=== PATIENT | female | born 1970 | race Two or more races ===

== ENCOUNTER 2024-06-09 15:43 | Inpatient (IN) | payer MEDICAID ==
[~2024-06-09] VITALS: Ht 165.1 cm; Wt 80.1 kg
[2024-06-09] MEDS ORDERED: SODIUM CHLORIDE 0.9% 1,000 ML IV ONE (16:00)
[2024-06-09 16:53] LABS: Basophils # (auto) 0.1 10 ^3/uL (0-0.2); Basophils % (auto) 1.2 % (0.0-2.0); Eosinophils # (auto) 0.2 10 ^3/uL (0-0.8); Eosinophils % (auto) 3.4 % (0.0-7.0); Hematocrit 37.3 % (36.0-46.0); Hemoglobin 12.4 g/dL (12.2-16.2); Mean Corpuscular Hemoglobin 30.1 pg (28.0-32.0); Mean Corpuscular Hgb Conc. 33.3 g/dL (32.0-36.0); Mean Corpuscular Volume 90.4 fL (80.0-100.0); Monocytes # (auto) 0.4 10 ^3/uL (0-1.3); Monocytes % (auto) 5.6 % (0.0-12.0); Neutrophils # (auto) 3.1 10 ^3/uL (1.6-8.6); Neutrophils % (auto) 45.8 % (37.0-80.0); Nucleated Red Blood Cells % 0.2 %; Platelet Count (auto) 239 10^3/uL (140-450); Red Blood Cells 4.13 10^6/uL (4.0-5.20); White Blood Cell 6.9 10^3/uL (4.4-10.8)
[2024-06-09 17:06] LABS: Alanine Aminotransferase 14 U/L (7-40); Alkaline Phosphatase 90 U/L (46-116); Anion Gap 7 (5-15); BUN/Creatinine Ratio 15.2 (10.0-20.0); Blood Urea Nitrogen 15 mg/dL (9-23); Calcium 9.1 mg/dL (8.7-10.4); Carbon Dioxide 25 mmol/L (20-31); Lipase 48 U/L (12-53); Potassium 4.2 mmol/L (3.5-5.1); Sodium 141 mmol/L (136-145); Total Protein 6.5 g/dL (5.7-8.2)
[2024-06-09] MEDS: SODIUM CHLORIDE 0.9% 1,000 ML IV ONE ×2 (17:10→20:49)
[2024-06-09 17:40] LABS: Aspartate Aminotransferase 13 U/L (13-40); Bilirubin, Total 0.2 mg/dL (0.2-1.0); Chloride 109 mmol/L (98-107); Glucose 106 mg/dL (74-106)
[2024-06-09] MEDS: HYDROcodone-ACET 10/325MG TAB PO ONE (17:49)
[2024-06-09] MEDS: IOHEXOL 300 MG/ML 100ML BOTTLE IJ ONE (18:10)
--- NOTE | 2024-06-09 19:01 | DVH ---
Exam: CT CT AB PEL WITH IV CON ONLY History: GI bleed Comparison Study: None TECHNIQUE: A digital featheredger and reducer machine image was obtained. During the uneventful, intravenous administration of c ontrast material, multislice data acquisition was obtained through the abdomen and pelvis. The data s et was subsequently reconstructed into axial images. Images reviewed on a wrist examination is an exa mination of axial and multiplanar reformations using a variety of window levels and settings. RADIATION DOSE: DLP 772.03 mGy.cm; CTDI vol 15.38 mGy. Findings: Lungs: The lung bases are clear. Heart: The visualized heart is unremarkable. No cardiomegaly or pericardial effusion. Liver: Unremarkable. Gallbladder: Unremarkable. Spleen: Unremarkable Pancreas: Unremarkable Adrenals: Unremarkable Kidneys: Unremarkable GI tract: Focal region of contrast extravasation noted in the mid transverse colon (axial image 38, c oronal image 26, sagittal image 71). Diffuse wall thickening of the jejunum. : Status post hysterectomy. Vasculature: Unremarkable Lymphadenopathy: Absent Peritoneum: No ascites Musculoskeletal: Mild to moderate multilevel degenerative changes of the thoracolumbar spine. Soft tissues: Unremarkable Impression: 1. Focal region of contrast extravasation in the mid transverse colon suggestive of gastrointestinal hemorrhage. 2. Diffuse jejunal wall thickening. Correlate for enteritis. Critical Result: Active Bleeding Findings discussed with SPENCER MACIAS at 06/09/2024 06:58 PM, and acknowledged receipt and understandin g of the findings.
[2024-06-09] MEDS: PIPERACILLIN-TAZOB 3.375GM 100 ML IV ONE (20:49)
--- NOTE | 2024-06-09 20:56 | ED.PDOC ---
GI ASSESSMENT HPI Comments This patient is a 54-year-old female who arrives to the ED today via EMS due to complaints of rectal bleeding and lower abdominal pain that began this morning and has continued. Patient states she had multiple movements were she had significant blood loss. Patient states multiple cups. Patient denies any history of hemorrhoids or intra-abdominal concerns. Patient denies any fever nausea or vomiting. Patient states she has a little bit dizzy. Patient was hypertensive on arrival. Chief Complaint: GI Bleed Time Seen by MD: 15:48 Primary Care Provider: UNKNOWN Reviewed Notes: Nurses Notes, Materials Associate Notes Allergies: Coded Allergies: NO KNOWN ALLERGIES (Unverified , 06/09/24) Information Source: Patient, Emergency Med Personnel Mode of Arrival: EMS Timing: Hours Duration: Since onset Prehospital treatment: None Quality: Cramping Stool: Blood Streaked, Other (Bloody stool with blood clots) Severity: Moderate Recent: None Recent Hx of: None Pain Location: Diffuse, Epigastric, Periumbilical Associated sign and symptoms: Diarrhea, Blood in Stool Past Medical History PAST MEDICAL HISTORY: Denies Surgical History: Denies all surgeries BRAND MARKETING COORDINATOR History: No Pertinent BRAND MARKETING COORDINATOR History Family History Family History: Reviewed,noncontributory to illness, No family hx of Cancer, No family hx of DM, No family hx of Heart jessica, No family hx of HTN, No family hx ofKidney jessica, No family hx of Liver jessica, No family hx of Lung jessica, No family hx of Stroke Social History Smoker: Non-Smoker Alcohol: Denies ETOH Use Drugs: Denies Drug Use Lives In: Home Constitutional: denies: chills, diaphoresis, fatigue, fever, malaise, sweats, weakness, others EENTM: denies: blurred vision, double vision, ear bleeding, ear discharge, ear drainage, ear pain, ear ringing, eye pain, eye redness, hearing loss, mouth pain, mouth swelling, nasal discharge, nose bleeding, nose congestion, nose pain, photophobia, tearing, throat pain, throat swelling, voice changes, others Respiratory: denies: cough, hemoptysis, orthopnea, SOB at rest, shortness of breath, SOB with excertion, stridor, wheezing, others Cardiovascular: denies: chest pain, dizzy spells, diaphoresis, Dyspnea on exertion, edema, irregular heart beat, left arm pain, lightheadedness, palpitations, PND, syncope, others Gastrointestinal: reports: rectal bleeding; denies: abdomen distended, abdominal pain, blood streaked bowels, constipated, diarrhea, dysphagia, difficu lty swallowing, hematemesis, melena, nausea, poor appetite, poor fluid intake, rectal pain, vomiting, others Genitourinary: denies: abnormal vagina bleeding, burning, dyspareunia, dysuria, flank pain, frequency, hematuria, incontinence, pain, , vagina discharge, urgency, others Neurological: reports: dizziness; denies: fainting, headache, left sided numbness, left sided weakness, numbness, paresthesia, pre-existing deficit, right sided numbness, right sided weakness, seizure, speech problems, tingling, tremors, weakness, others Musculoskeletal: denies: back pain, gout, joint pain, joint swelling, muscle pain, muscle stiffness, neck pain, others Integumetry: denies: bruises, change in color, change in hair/nails, dryness, laceration, lesions, lumps, rash, wounds, others Allergic/Immunocompromised: denies: Difficulty Healing, Frequent Infections, Hives, Itching, others Hematologic/Lymphatic: denies: anemia, blood clots, easy bleeding, easy bruising, swollen glands, others Endocrine: denies: excessive hunger, excessive sweating, excessive thirst, excessive urination, flushing, intolerance to cold, intolerance to heat, unexplained weight gain, unexplained weight loss, others Psychiatric: denies: anxiety, bipolar disorder, depression, hopeless, panic disorder, schizophrenia, sleepless, suicidal, others Physical Exam General Appearance: Moderate Distress (Patient is in moderate distress due to anxiety more than definitive pain concerns.), Normal HEENT: Normal ENT Inspection, Pharynx Normal, TMs Normal Neck: Full Range of Motion, Non-Tender, Normal, Normal Inspection Respiratory: Chest Non-Tender, Lungs Clear, No Accessory Muscle Use, No Respiratory Distress, Normal Breath Sounds Cardiovascular: No Edema, No JVD, No Murmur, No Gallop, Normal Peripheral Pulses, Regular Rate/Rhythm Breast Exam: Deferred Gastrointestinal: No Pulsatile Mass, Normal Bowel Sounds, Soft, Other (Diffuse periumbilical and epigastric tenderness to palpation. No pulsatile masses. Abdomen was reasonably soft.) Genitalia: Deferred Pelvic: Deferred Rectal: Deferred Extremities: No calf tenderness, Normal capillary refill, Normal inspection, Normal range of motion, Non-tender, No pedal edema Neurologic: Alert, No Motor Deficits, Normal Affect, No Sensory Deficits Cerebellar Function: Normal Reflexes: Normal Skin: Dry, Normal Color, Warm Lymphatic: No Adenopathy Was a procedure done? Was a procedure done?: No GI differential Dx Differential Diagnosis: Bowel Obstruction, Cholangitis, Constipation, Diverticular disease, Gastritis/PUD, Gastroenteritis, GI hemorrhage, Inflammatory BD, Pancreatitis, Kidney Stone X-Ray, Labs, Meds, VS Vital Signs Date Time Temp Pulse Resp B/P (MAP) Pulse Ox O2 Delivery O2 Flow Rate FiO2 06/09/24 20:10 88 11 121/73 (89) 98 06/09/24 17:18 98.1 91 18 118/50 (72) 97 98.1 06/09/24 17:18 91 18 97 Room Air 06/09/24 16:03 98.7 93 17 175/83 (113) 97 Lab Test 06/09/24 16:10 Range/Units White Blood Count 6.9 4.4-10.8 10^3/uL Red Blood Count 4.13 4.0-5.20 10^6/uL Hemoglobin 12.4 12.2-16.2 g/dL Hematocrit 37.3 36.0-46.0 % Mean Corpuscular Volume 90.4 80.0-100.0 fL Mean Corpuscular Hemoglobin 30.1 28.0-32.0 pg Mean Corpuscular Hemoglobin Concent 33.3 32.0-36.0 g/dL Red Cell Distribution Width 13.0 11.8-14.3 % Platelet Count 239 140-450 10^3/uL Mean Platelet Volume 8.4 6.9-10.8 fL Neutrophils (%) (Auto) 45.8 37.0-80.0 % Lymphocytes (%) (Auto) 44.0 10.0-50.0 % Monocytes (%) (Auto) 5.6 0.0-12.0 % Eosinophils (%) (Auto) 3.4 0.0-7.0 % Basophils (%) (Auto) 1.2 0.0-2.0 % Neutrophils # (Auto) 3.1 1.6-8.6 10 ^3/uL Lymphocytes # (Auto) 3.0 0.4-5.4 10 ^3/uL Monocytes # (Auto) 0.4 0-1.3 10 ^3/uL Eosinophils # (Auto) 0.2 0-0.8 10 ^3/uL Basophils # (Auto) 0.1 0-0.2 10 ^3/uL Nucleated Red Blood Cells 0.2 % Sodium Level 141 136-145 mmol/L Potassium Level 4.2 3.5-5.1 mmol/L Chloride Level 109 H 98-107 mmol/L Carbon Dioxide Level 25 20-31 mmol/L Anion Gap 7 5-15 Blood Urea Nitrogen 15 9-23 mg/dL Creatinine 0.99 0.550-1.02 mg/dL Glomerular Filtration Rate Calc 67 >90 mL/min BUN/Creatinine Ratio 15.2 10.0-20.0 Serum Glucose 106 74-106 mg/dL Calcium Level 9.1 8.7-10.4 mg/dL Total Bilirubin 0.2 0.2-1.0 mg/dL Aspartate Amino Transferase (AST) 13 13-40 U/L Alanine Aminotransferase (ALT) 14 7-40 U/L Alkaline Phosphatase 90 46-116 U/L Total Protein 6.5 5.7-8.2 g/dL Albumin 4.0 3.2-4.8 g/dL Lipase 48 12-53 U/L Current Medications Medications (Trade) Dose Ordered Sig/Roxanna Route Start Time Stop Time Status Last Admin Sodium Chloride 1,000 ml @ 1,000 mls/hr Q1H ONCE IV 06/09/24 17:15 06/09/24 18:14 DC 06/09/24 17:10 Acetaminophen/ Hydrocodone Bitart ([place] 10/325MG Tab) 1 tab ONCE ONCE PO 06/09/24 17:30 06/09/24 17:31 DC 06/09/24 17:49 X-Ray, Labs, Meds, VS Comment All studies performed the ED were evaluated by me personally. Urinalysis was pending at time of this note. Serum laboratories were unremarkable for any significant anemic concerns or infective concerns. Unfortunately, CT of abdomen and pelvis with contrast confirmed a transverse colon bleed. Dr. Cain was ini tially contacted and stated that we needed to discuss the case with Dr. German to confirm surgical support. We do not have Interventional radiation over the weekend so therefore, Dr. Cain was concerned. Discussed the case with Dr. German. He agreed to accept the patient for surgical intervention tomorrow morning. He advised keeping the patient NPO as well as IV antibiotics and fluids. This patient's insurance required a consultation with provider Ev Frank. She stated that Dr. Cain needs stated come physically see the patient and write a note prior to confirming admission. Dr. Cain has been notified. Time of 1ST Reevaluation: 20:54 Reevaluation 1ST: Improved Consultation: PCP, Surgery Patient Education/Counseling: Diagnosis, Treatment Family Education/Counseling: Diagnosis, Treatment Departure 1 Departure Time of Disposition: 20:55 Impression: Primary Impression: GI bleed Disposition: ADMITTED INPATIENT Condition: Stable Discharged With: Self Critical Care Note Critical Care Time?: No Stability Stability form required: No Heart Score Heart Score: Heart Score Response (Comments) Value History N/A 0 EKG N/A 0 Age N/A 0 Risk Factors N/A 0 Troponin N/A 0 Total 0 SPENCER MACIAS PAC Jun 09, 2024 20:56
[2024-06-09 21:41] LABS: Basophils # (auto) 0.1 10 ^3/uL (0-0.2); Basophils % (auto) 0.9 % (0.0-2.0); Eosinophils # (auto) 0.2 10 ^3/uL (0-0.8); Eosinophils % (auto) 2.8 % (0.0-7.0); Hematocrit 28.9 % (36.0-46.0); Hemoglobin 9.5 g/dL (12.2-16.2); Lymphocytes # (auto) 3.1 10 ^3/uL (0.4-5.4); Lymphocytes % (auto) 39.9 % (10.0-50.0); Mean Corpuscular Hemoglobin 30.5 pg (28.0-32.0); Mean Corpuscular Hgb Conc. 33.1 g/dL (32.0-36.0); Mean Corpuscular Volume 92.3 fL (80.0-100.0); Monocytes # (auto) 0.4 10 ^3/uL (0-1.3); Monocytes % (auto) 5.3 % (0.0-12.0); Neutrophils % (auto) 51.1 % (37.0-80.0); Nucleated Red Blood Cells % 0.3 %; Platelet Count (auto) 201 10^3/uL (140-450); Red Blood Cells 3.13 10^6/uL (4.0-5.20); Red Cell Distribution Width 13.1 % (11.8-14.3); White Blood Cell 7.8 10^3/uL (4.4-10.8)
--- NOTE | 2024-06-09 21:45 | PRN ---
[facility] 06/09/24 2145: Misceleneous Note Note Note Called by ED Provider Xavier PERDOMO for medical management, patient with chief complaint of bleeding x [address] abdomen/pelvis w iv contrast resulted: 1. Focal region of contrast extravasation in the mid transverse colon suggestive of gastrointestinal hemorrhage. 2. Diffuse jejunal wall thickening. Correlate for enteritis. Critical Result: Active Bleeding Recommendation to please call GI for patient assessment for active gi bleeding per radiology report. Once patient has been seen by GI or general surgeon please call for medical management. H&H every 6 hours ordered. Thank you. Discussed all above with supervising MD Dr. Rowland. SHANA ROWLAND MD 06/11/24 1412: Misceleneous Note Note Note Patient was seen and evaluated by me. I agree with the assessment and plan as outlined by my nurse practitioner. CHANNING FOSTER [employer] [employer] MARKER Jun 09, 2024 21:45 SHANA ROWLAND MD Jun 11, 2024 14:12
[2024-06-09] MEDS: HYDROmorphone HCL 2 MG/ML VL/or syr IV ONE (22:01)
[2024-06-09] MEDS: ONDANSETRON HCL 4 MG/2 ML VIAL IV ONE (22:03)
[2024-06-09 22:45] LABS: Urine Bacteria None Seen /hpf (None Seen)
[2024-06-09 23:05] LABS: Urine Blood Negative /uL (Negative); Urine Clarity Clear (Clear); Urine Color Light-Yellow (Yellow); Urine Protein, UAD TRACE (Negative); Urine Squamous Epithelial Cell FEW /hpf (<5); Urine Urobilinogen Normal (Negative); Urine WBC 1 /hpf (0 - 5)
[2024-06-09 23:08] LABS: Urine Specific Gravity > 1.050 (1.001-1.035)
[2024-06-10 00:38] LABS: Hematocrit 31.4 % (36.0-46.0); Hemoglobin 10.3 g/dL (12.2-16.2)
[2024-06-10] MEDS: LORazepam 2MG/ML-1ML VIAL IV ONE (01:36)
[2024-06-10] MEDS: HYDROmorphone HCL 2 MG/ML VL/or syr IV ONE (01:38)
[2024-06-10] MEDS: SODIUM CHLORIDE 0.9% 1,000 ML IV SCH (02:00)
[2024-06-10 06:12] LABS: Hematocrit 29.2 % (36.0-46.0); Hemoglobin 9.7 g/dL (12.2-16.2)
[2024-06-10 08:00] VITALS: PULSE 69; RESP 17; O2SAT 94
[2024-06-10] MEDS ORDERED: ACETAMINOPHEN 325 MG TAB PO PRN (09:00)
[2024-06-10] MEDS ORDERED: SODIUM CHLORIDE 0.9% 1,000 ML IV SCH (09:00)
[2024-06-10] MEDS ORDERED: ONDANSETRON HCL 4 MG/2 ML VIAL IV PRN (09:00)
[2024-06-10] MEDS ORDERED: MORPHINE SULFATE INJ 2 MG/ml SYRG IV PRN (09:00)
[2024-06-10] MEDS ORDERED: MORPHINE SULFATE 4 MG/ML SYR/VIAL IV PRN (09:00)
[2024-06-10] MEDS ORDERED: HYDROcodone-ACET 5/325MG TAB PO PRN (09:00)
[2024-06-10] MEDS ORDERED: NITROGLYCERIN 0.4 MG SL TAB SL PRN (09:00)
[2024-06-10] MEDS ORDERED: PANTOPRAZOLE 40 MG/10 ML VIAL INJ IV SCH (10:00)
--- NOTE | 2024-06-10 10:28 | DVHHP2 ---
History of Present Illness Reason for Visit: Dizziness and blood in stool History of Present Illness Daya Hendrickson is a 54-year-old female with past medical history of hypertension, diabetes, heart valve, ovarian cancer, and abdominal tumor who presents to the ED today with dizziness and blood in her stool. Patient reports that she was in the shower came out had some coffee and went to the bathroom noticed that when she had a bowel movement there is blood in her stool. She reports having blood in her stool x7 when she was home at home and 4 times in the ED. she complains of 7/10 pain pressure-like and intermittent. She denies nausea, vomiting, headache, chest pain, shortness of breath, and ligh theadedness. Patient does report that she just recently establish a PCP and was supposed to do some tests but did not continue. She reports that she has a leaking heart valve was advised about 2 months ago when she was at [facility]. Patient reports that she has not followed up with a special warfare boat operator for that. Patient admits that she smokes marijuana also drinks occasionally and smokes less than half a pack of cigarettes per day. Cardiovascular: HTN, Other (Heart valve) Endocrine: Diabetes Past Medical History Ovarian cancer and abdominal tumor Past Surgical History: Other Past Surgical History Heart valve Family History: CVA, DM, Hyperlipidemia, Other Family History Patient reports both mom and dad side have diabetes, hyperlipidemia, CVA Smoke: <1 pack per day ALCOHOL: occassional Drugs: Marijuana Lives: with Family Domestic Violence: Neg Review of Systems Constitutional: Yes: Other (Dizziness); No: Fever, Chills, Sweats, Weakness, Malaise Eyes: No: Pain, Vision change, Conjunctivae inflammation, Eyelid inflammation, Other, Redness ENT: No: Ear pain, Ear discharge, Nose pain, Nose discharge, Nose congestion, Mouth pain, Mouth swelling, Throat pain, Throat swelling, Other Respiratory: No: Cough, Dry, Shortness of breath, SOB with excertion, Wheezing, Hemoptysis, Pleuritic Pain, Sputum, Wheezing, Other Cardiovascular: No: Chest Pain, Palpitations, Orthopnea, Paroxysmal Noc. Dyspnea, Edema, Lt Headedness, Other Gastrointestinal: Abdominal Pain, Hematochezia; No: Nausea, Vomiting, Diarrhea, Constipation, Melena, Other Genitourinary: No Dysuria, No Frequency, No Incontinence, No Hematuria, No Retention, No Other Musculoskeletal: No: other, neck pain, shoulder pain, arm pain, back pain, hand pain, leg pain, foot pain Skin: No: Rash, Lesions, Jaundice, Bruising, Other Neurological: No: Weakness, Numbness, Incoordination, Change in speech, Confusion, Seizures, Other Allergies: Coded Allergies: NO KNOWN ALLERGIES (Unverified , 06/09/24) Medications Current Medications Medications Dose Ordered Sig/Roxanna Route Start Time Stop Time Status Last Admin Dose Admin Acetaminophen/ Hydrocodone Bitart 1 tab Q4HP PRN PO 06/10/24 09:00 UNV Acetaminophen 650 mg Q6HP PRN PO 06/10/24 09:00 UNV Nitroglycerin 0.4 mg Q5MINP PRN SL 06/10/24 09:00 UNV Morphine Sulfate 2 mg Q30M PRN IV 06/10/24 09:00 UNV Pantoprazole Sodium 40 mg DAILY IV 06/10/24 10:00 UNV Sodium Chloride 1,000 ml @ 100 mls/hr Q10H IV 06/10/24 09:00 UNV Piperacillin Sod/ Tazobactam Sod 100 ml @ 25 mls/hr Q6HR IV 06/10/24 12:00 UNV Morphine Sulfate 4 mg Q4HPRN PRN IV 06/10/24 09:00 UNV Ondansetron HCl 4 mg Q4HPRN PRN IV 06/10/24 09:00 UNV Sodium Chloride 1,000 ml @ 75 mls/hr [id number] IV 06/10/24 09:45 UNV Piperacillin Sod/ Tazobactam Sod 100 ml @ 25 mls/hr Q8HR IV 06/10/24 14:00 UNV Acetaminophen/ Hydrocodone Bitart 1 tab Q4HP PRN PO 06/10/24 09:45 UNV Ondansetron HCl 4 mg Q4HP PRN IV 06/10/24 09:45 UNV Acetaminophen 650 mg Q6HP PRN PO 06/10/24 09:45 UNV Morphine Sulfate 2 mg Q4HPRN PRN IV 06/10/24 09:45 UNV Exam Vital Signs Vital Signs Date Time Temp Pulse Resp B/P (MAP) Pulse Ox O2 Delivery O2 Flow Rate FiO2 06/10/24 06:34 74 10 140/71 (94) 99 06/09/24 22:19 98.4 98.4 06/09/24 17:18 Room Air General Appearance: Alert, Oriented X3, Cooperative, No acute distress HEENT: Atraumatic, PERRLA, EOMI, Mucous membr. moist/pink Respiratory: Clear to auscultation, Normal air movement Cardiovascular: Regular rate, Normal S1, Normal S2, No murmurs Abdominal: Soft Extremities: No clubbing, No cyanosis, No edema, Normal pulses, No tenderness/ swelling Skin: No rashes, No breakdown, No significant lesion Neuro: Normal gait, Normal speech, Strength at 5/5 X4 ext, Normal tone, Sensation intact Psych/Mental Status: Mental status NL, Mood NL Labs/Xrays Labs Test 06/10/24 05:40 06/09/24 21:47 06/09/24 20:50 06/09/24 16:10 Range/Units Hemoglobin 9.7 L 12.2-16.2 g/dL Hematocrit 29.2 L 36.0-46.0 % Urine Color Light-yellow Yellow Urine Clarity Clear Clear Urine pH 6.0 5.0-9.0 Urine Specific [place] > 1.050 H 1.001-1.035 Urine Protein Trace H Negative Urine Ketones Negative Negative Urine Blood Negative Negative /uL Urine Nitrite Negative Negative Urine Bilirubin Negative Negative Urine Urobilinogen Normal Negative mg/dL Urine Leukocyte Esterase Negative Negative /uL Urine RBC 1 0 - 4 /hpf Urine WBC 1 0 - 5 /hpf Urine Squamous Epithelial Cells Few <5 /hpf Urine Bacteria None seen None Seen /hpf Urine Glucose Normal Normal mg/dL White Blood Count 7.8 4.4-10.8 10^3/uL Red Blood Count 3.13 L 4.0-5.20 10^6/uL Mean Corpuscular Volume 92.3 80.0-100.0 fL Mean Corpuscular Hemoglobin 30.5 28.0-32.0 pg Mean Corpuscular Hemoglobin Concent 33.1 32.0-36.0 g/dL Red Cell Distribution Width 13.1 11.8-14.3 % Platelet Count 201 140-450 10^3/uL Mean Platelet Volume 8.4 6.9-10.8 fL Neutrophils (%) (Auto) 51.1 37.0-80.0 % Lymphocytes (%) (Auto) 39.9 10.0-50.0 % Monocytes (%) (Auto) 5.3 0.0-12.0 % Eosinophils (%) (Auto) 2.8 0.0-7.0 % Basophils (%) (Auto) 0.9 0.0-2.0 % Neutrophils # (Auto) 4.0 1.6-8.6 10 ^3/uL Lymphocytes # (Auto) 3.1 0.4-5.4 10 ^3/uL Monocytes # (Auto) 0.4 0-1.3 10 ^3/uL Eosinophils # (Auto) 0.2 0-0.8 10 ^3/uL Basophils # (Auto) 0.1 0-0.2 10 ^3/uL Nucleated Red Blood Cells 0.3 % Sodium Level 141 136-145 mmol/L Potassium Level 4.2 3.5-5.1 mmol/L Chloride Level 109 H 98-107 mmol/L Carbon Dioxide Level 25 20-31 mmol/L Anion Gap 7 5-15 Blood Urea Nitrogen 15 9-23 mg/dL Creatinine 0.99 0.550-1.02 mg/dL Glomerular Filtration Rate Calc 67 >90 mL/min BUN/Creatinine Ratio 15.2 10.0-20.0 Serum Glucose 106 74-106 mg/dL Calcium Level 9.1 8.7-10.4 mg/dL Total Bilirubin 0.2 0.2-1.0 mg/dL Aspartate Amino Transferase (AST) 13 13-40 U/L Alanine Aminotransferase (ALT) 14 7-40 U/L Alkaline Phosphatase 90 46-116 U/L Total Protein 6.5 5.7-8.2 g/dL Albumin 4.0 3.2-4.8 g/dL Lipase 48 12-53 U/L Exam: CT CT AB PEL WITH IV CON ONLY History: GI bleed Comparison Study: None TECHNIQUE: A digital media intern image was obtained. During the uneventful, intravenous administration of contrast material, multislice data acquisition was obtained through the abdomen and pelvis. The data set was subsequently reconstructed into axial images. Images reviewed on a wrist examination is an examination of axial and multiplanar reformations using a variety of window levels and settings. RADIATION DOSE: DLP 772.03 mGy.cm; CTDI vol 15.38 mGy. Findings: Lungs: The lung bases are clear. Heart: The visualized heart is unremarkable. No cardiomegaly or pericardial effusion. Liver: Unremarkable. Gallbladder: Unremarkable. Spleen: Unremarkable Pancreas: Unremarkable Adrenals: Unremarkable Kidneys: Unremarkable GI tract: Focal region of contrast extravasation noted in the mid transverse colon (axial image 38, coronal image 26, sagittal image 71). Diffuse wall thickening of the jejunum. : Status post hysterectomy. Vasculature: Unremarkable Lymphadenopathy: Absent Peritoneum: No ascites Musculoskeletal: Mild to moderate multilevel degenerative changes of the thoracolumbar spine. Soft tissues: Unremarkable Impression: 1. Focal region of contrast extravasation in the mid transverse colon suggestive of gastrointestinal hemorrhage. 2. Diffuse jejunal wall thickening. Correlate for enteritis. Assessment/Plan Assessment/Plan Assessment/Plan: GI hemorrhage Intractable abdominal pain Gen sx cx ct a/p noted labs pain management antiemetics ua am labs lipase Serial H&Hs IV antibiotics - Zosyn CEA Protonix drip History of heart valve Cardiology consult and also clearance for surgery Echo TSH Chronic Hypertension Monitor Chronic Diabetes Hemoglobin A1c ISS and Accu-Cheks History of ovarian cancer History of abdominal tumor Follow up outpatient FEN/PPX NPO IVf protonix drip DVT ppx not indicated patient currently bleeding Admit to tele Discussed plan of care with patient and nurse No home medications to reconcile Plan discussed with: Patient My Orders Orders - ANCA PERSAUD DIVER PUMPER Procedure Category Date Status Time * Cardiology Consult CONS 06/10/24 Transmitted 09:44 * Surgical Consult CONS 06/10/24 Transmitted Sodium Chloride 0.9% PHA 06/10/24 Logged 09:45 Piperacillin-Tazob PHA 06/10/24 Logged 3.375gm (Zosyn 3.375g 14:00 Admit ADMIT 06/10/24 Transmitted 09:44 Allergies PAT 06/10/24 In Process 09:44 Code Status CODE 06/10/24 Transmitted 09:44 Hydrocodone-Acet PHA 06/10/24 Logged 5/325mg Tab ([place] 09:45 Ondansetron Hcl PHA 06/10/24 Logged (Zofran) 09:45 Complete Blood Count LAB 06/11/24 Verified 04:00 Comprehensive LAB 06/11/24 Verified Metabolic Panel 04:00 Npo (Nothing By DIET 06/10/24 Transmitted Mouth) Diet Lunch Acetaminophen Tablet PHA 06/10/24 Logged (Tylenol Tablet) 09:45 Morphine Sulfate PHA 06/10/24 Logged Injection 09:45 Echo 2d Mode Cardiac US 06/10/24 Logged DOP 09:44 Thyroid Stimulating LAB 06/10/24 Logged Hormone 09:44 Electrocardigram EKG 06/11/24 Logged 04:00 Date of Service: Jun 10, 2024 Billing Provider: ANCA PERSAUD Common Visit Codes: [id number] INP/OBS CARE (MOD) ANCA PERSAUD Jun 10, 2024 10:28
[2024-06-10 10:38] LABS: Hemoglobin 9.7 g/dL (12.2-16.2)
[2024-06-10] MEDS ORDERED: DEXTROSE (50%) 50ML SYRG IV PRN (10:45)
[2024-06-10] MEDS: PANTOPRAZOLE 40mg/50ML NS AE 50 ML IV SCH (11:30)
[2024-06-10] MEDS: InsuLIN REG 1unit/0.01ml Soln (100units/ml) SC SCH (12:00)
[2024-06-10] MEDS ORDERED: PIPERACILLIN-TAZOB 3.375GM 100 ML IV SCH (12:00)
[2024-06-10] MEDS: MORPHINE SULFATE INJ 2 MG/ml SYRG IV PRN (12:04)
[2024-06-10] MEDS: ACCU-CHEK COMFORT CURVE STRIP VI SCH (12:04)
[2024-06-10] MEDS: ONDANSETRON HCL 4 MG/2 ML VIAL IV PRN (12:04)
[2024-06-10] MEDS: PIPERACILLIN-TAZOB 3.375GM 100 ML IV SCH (14:32)
[2024-06-10 16:55] LABS: Hematocrit 28.5 % (36.0-46.0); Hemoglobin 9.3 g/dL (12.2-16.2)
[2024-06-10 17:46] VITALS: BP 117/60; PULSE 79; RESP 16; TEMP 96.2; O2SAT 99
[2024-06-10 20:00] VITALS: PULSE 90
--- NOTE | 2024-06-10 20:54 | DVHINCON2 ---
Date of service: Jun 10, 2024 (Late entryPatient seen at 9:00 a.m. at bedside in ER) Referring Physician Rodrick Park Reason for Consultation Lower GI bleed History of Present Illness This patient is a 54-year-old female who arrives to the ED today via EMS due to complaints of rectal bleeding and lower abdominal pain that began this morning and has continued. Patient states she had multiple movements were she had significant blood loss. Patient states multiple cups. Patient denies any history of hemorrhoids or intra-abdominal concerns. Patient denies any fever nausea or vomiting. Patient states she has a little bit dizzy. Patient was hypertensive on arrival. Past Medical History Hypothyroidism Hypertension Alcohol marijuana and amphetamine use Polysubstance abuse Ovarian cancer Valvular heart malformation Past Surgical History Cardiac surgery for valve replacement Hysterectomy Family History: Patient reports no known family medical history. Allergies: Coded Allergies: NO KNOWN ALLERGIES (Unverified , 06/09/24) Current Medications Current Medications Medications (Trade) Dose Ordered Sig/Roxanna Route PRN Reason Start Time Stop Time Status Last Admin Acetaminophen/ Hydrocodone Bitart (Wilder 5/325MG Tab) 1 tab Q4HP PRN PO MODERATE PAIN (4-6 PAIN SCALE) 06/10/24 09:00 UNV Acetaminophen (Tylenol Tablet) 650 mg Q6HP PRN PO PAIN SCALE 1-3 OR TEMP>100.4 06/10/24 09:00 UNV Nitroglycerin (Ntrostat Sublingual) 0.4 mg Q5MINP PRN SL FOR CHEST PAIN 06/10/24 09:00 UNV Morphine Sulfate 2 mg Q30M PRN IV FOR CHEST PAIN 06/10/24 09:00 UNV Pantoprazole Sodium (Protonix) 40 mg DAILY IV 06/10/24 10:00 UNV Sodium Chloride 1,000 ml @ 100 mls/hr Q10H IV 06/10/24 09:00 UNV Piperacillin Sod/ Tazobactam Sod 100 ml @ 25 mls/hr Q6HR IV 06/10/24 12:00 UNV Morphine Sulfate 4 mg Q4HPRN PRN IV SEVERE PAIN (7-10 PAIN SCALE) 06/10/24 09:00 UNV Ondansetron HCl (Zofran) 4 mg Q4HPRN PRN IV NAUSEA / VOMITING 06/10/24 09:00 UNV Sodium Chloride 1,000 ml @ 75 mls/hr [id number] IV 06/10/24 09:45 06/10/24 09:45 Piperacillin Sod/ Tazobactam Sod 100 ml @ 25 mls/hr Q8HR IV 06/10/24 14:00 06/10/24 14:32 Acetaminophen/ Hydrocodone Bitart ([place]ilder 5/325MG Tab) 1 tab Q4HP PRN PO MODERATE PAIN (4-6 PAIN SCALE) 06/10/24 09:45 Ondansetron HCl (Zofran) 4 mg Q4HP PRN IV NAUSEA / VOMITING 06/10/24 09:45 06/10/24 12:04 Acetaminophen (Tylenol Tablet) 650 mg Q6HP PRN PO PAIN SCALE 1-3 OR TEMP>100.4 06/10/24 09:45 Morphine Sulfate 2 mg Q4HPRN PRN IV SEVERE PAIN (7-10 PAIN SCALE) 06/10/24 09:45 06/10/24 12:04 Pantoprazole Sodium 50 ml @ 10 mls/hr Q5H IV 06/10/24 10:30 06/10/24 20:37 Diagnostic Test (Pha) (Accu-Chek Comfort Curve T) 1 strip Q6HR 06/10/24 12:00 06/10/24 18:01 Insulin Human Regular (InsuLIN R) Q6HR SC 06/10/24 12:00 Dextrose 50 ml UD PRN IV Blood Sugar LESS THAN 60 06/10/24 10:45 Vital Signs Vital Signs Date Time Temp Pulse Resp B/P (MAP) Pulse Ox O2 Delivery O2 Flow Rate FiO2 06/10/24 17:46 96.2 79 16 117/60 (79) 99 96.2 06/10/24 17:01 Room Air* 0 21 Physical Exam General Appearance: Alert, Oriented X3, Cooperative, No acute distress; mild pallor, slightly lethargic HEENT: Atraumatic, PERRLA, EOMI, Mucous membr. moist/pink Respiratory: Clear to auscultation, Normal air movement Cardiovascular: Regular rate, Normal S1, Normal S2, No murmurs Abdominal: Soft Extremities: No clubbing, No cyanosis, No edema, Normal pulses, No tenderness/swelling Skin: No rashes, No breakdown, No significant lesion Neuro: Normal gait, Normal speech, Strength at 5/5 X4 ext, Normal tone, Sensation intact Psych/Mental Status: Mental status NL, Mood NL Labs/Diagnostic Data Labs Test 06/10/24 18:07 06/10/24 16:24 06/10/24 10:26 06/10/24 05:40 Range/Units POC Glucose 78 70-106 mg/dl Hemoglobin 9.3 L 12.2-16.2 g/dL Hematocrit 28.5 L 36.0-46.0 % Hemoglobin A1c 5.8 H <5.7 % A1C Thyroid Stimulating Hormone (TSH) 2.27 0.55-4.78 uIU/mL Test 06/09/24 21:47 06/09/24 20:50 06/09/24 16:10 Range/Units Urine Color Light-yellow Yellow Urine Clarity Clear Clear Urine pH 6.0 5.0-9.0 Urine Specific [place] > 1.050 H 1.001-1.035 Urine Protein Trace H Negative Urine Ketones Negative Negative Urine Blood Negative Negative /uL Urine Nitrite Negative Negative Urine Bilirubin Negative Negative Urine Urobilinogen Normal Negative mg/dL Urine Leukocyte Esterase Negative Negative /uL Urine RBC 1 0 - 4 /hpf Urine WBC 1 0 - 5 /hpf Urine Squamous Epithelial Cells Few <5 /hpf Urine Bacteria None seen None Seen /hpf Urine Glucose Normal Normal mg/dL White Blood Count 7.8 4.4-10.8 10^3/uL Red Blood Count 3.13 L 4.0-5.20 10^6/uL Mean Corpuscular Volume 92.3 80.0-100.0 fL Mean Corpuscular Hemoglobin 30.5 28.0-32.0 pg Mean Corpuscular Hemoglobin Concent 33.1 32.0-36.0 g/dL Red Cell Distribution Width 13.1 11.8-14.3 % Platelet Count 201 140-450 10^3/uL Mean Platelet Volume 8.4 6.9-10.8 fL Neutrophils (%) (Auto) 51.1 37.0-80.0 % Lymphocytes (%) (Auto) 39.9 10.0-50.0 % Monocytes (%) (Auto) 5.3 0.0-12.0 % Eosinophils (%) (Auto) 2.8 0.0-7.0 % Basophils (%) (Auto) 0.9 0.0-2.0 % Neutrophils # (Auto) 4.0 1.6-8.6 10 ^3/uL Lymphocytes # (Auto) 3.1 0.4-5.4 10 ^3/uL Monocytes # (Auto) 0.4 0-1.3 10 ^3/uL Eosinophils # (Auto) 0.2 0-0.8 10 ^3/uL Basophils # (Auto) 0.1 0-0.2 10 ^3/uL Nucleated Red Blood Cells 0.3 % Sodium Level 141 136-145 mmol/L Potassium Level 4.2 3.5-5.1 mmol/L Chloride Level 109 H 98-107 mmol/L Carbon Dioxide Level 25 20-31 mmol/L Anion Gap 7 5-15 Blood Urea Nitrogen 15 9-23 mg/dL Creatinine 0.99 0.550-1.02 mg/dL Glomerular Filtration Rate Calc 67 >90 mL/min BUN/Creatinine Ratio 15.2 10.0-20.0 Serum Glucose 106 74-106 mg/dL Calcium Level 9.1 8.7-10.4 mg/dL Total Bilirubin 0.2 0.2-1.0 mg/dL Aspartate Amino Transferase (AST) 13 13-40 U/L Alanine Aminotransferase (ALT) 14 7-40 U/L Alkaline Phosphatase 90 46-116 U/L Total Protein 6.5 5.7-8.2 g/dL Albumin 4.0 3.2-4.8 g/dL Lipase 48 12-53 U/L ABD PELVIC CT SCAN Impression: 1. Focal region of contrast extravasation in the mid transverse colon suggestive of gastrointestinal hemorrhage. 2. Diffuse jejunal wall thickening. Correlate for enteritis. Critical Result: Active Bleeding Problems(with codes): (1) Anemia (2) GI bleed (3) Polysubstance (excluding opioids) dependence (4) Colitis (5) Enteritis Plan/Recommendation Plan Patient appears to be stabilizing and her lower GI bleeding is resolving Continue IV fluid hydration Serial H&H every 6 hours and if stable we can change it to H&H every 12 hours Protonix 40 mg IV daily IV antibiotics Monitor labs and check PT INR Check stool for WBC occult blood bacterial culture and C diff Ice chips and if tolerated advance to clear liquid diet Patient may need a colonoscopy in the next 24-48 hours pending her clinical progress I will follow up this patient with you closely Plan discussed with: Patient, Daughter, Other (ER Nurse) NIRALI PRO MD Jun 10, 2024 20:54
[2024-06-10 21:00] VITALS: BP 121/51; PULSE 90; RESP 18; TEMP 98.4; O2SAT 98
[2024-06-10 23:03] LABS: Hemoglobin 9.4 g/dL (12.2-16.2)
[2024-06-10] MEDS: HYDROcodone-ACET 5/325MG TAB PO PRN (23:46)
[2024-06-11] VITALS (8 sets, daily range): BP systolic 112–186; BP diastolic 54–72; PULSE 74–92; RESP 17–20; TEMP 98.2–98.6; O2SAT 90–97
[2024-06-11 07:28] LABS: Basophils # (auto) 0.1 10 ^3/uL (0-0.2); Eosinophils # (auto) 0.3 10 ^3/uL (0-0.8); Eosinophils % (auto) 3.5 % (0.0-7.0); Hematocrit 26.7 % (36.0-46.0); Hemoglobin 8.6 g/dL (12.2-16.2); Lymphocytes % (auto) 38.8 % (10.0-50.0); Mean Corpuscular Hemoglobin 29.7 pg (28.0-32.0); Mean Corpuscular Hgb Conc. 32.4 g/dL (32.0-36.0); Mean Corpuscular Volume 91.8 fL (80.0-100.0); Monocytes # (auto) 0.3 10 ^3/uL (0-1.3); Monocytes % (auto) 4.3 % (0.0-12.0); Neutrophils # (auto) 4.1 10 ^3/uL (1.6-8.6); Neutrophils % (auto) 52.4 % (37.0-80.0); Nucleated Red Blood Cells % 0.1 %; Platelet Count (auto) 204 10^3/uL (140-450); Red Blood Cells 2.91 10^6/uL (4.0-5.20); Red Cell Distribution Width 12.8 % (11.8-14.3); White Blood Cell 7.8 10^3/uL (4.4-10.8)
[2024-06-11 07:40] LABS: INR 1.06 (0.9-1.15); Prothrombin Time 11.2 sec (9.3-11.8)
[2024-06-11 07:41] LABS: Albumin 3.2 g/dL (3.2-4.8); Alkaline Phosphatase 68 U/L (46-116); Anion Gap 9 (5-15); BUN/Creatinine Ratio 21.3 (10.0-20.0); Blood Urea Nitrogen 17 mg/dL (9-23); Carbon Dioxide 21 mmol/L (20-31); Potassium 4.2 mmol/L (3.5-5.1); Sodium 139 mmol/L (136-145)
[2024-06-11 07:49] LABS: Alanine Aminotransferase 9 U/L (7-40); Aspartate Aminotransferase 11 U/L (13-40); Bilirubin, Total 0.3 mg/dL (0.2-1.0); Calcium 8.6 mg/dL (8.7-10.4); Chloride 109 mmol/L (98-107); Glucose 71 mg/dL (74-106); Total Protein 5.2 g/dL (5.7-8.2)
[2024-06-11] MEDS: IRON SUCROSE COMPLEX 110 ML IV SCH (11:31)
[2024-06-11 11:49] LABS: Hematocrit 26.1 % (36.0-46.0); Hemoglobin 8.8 g/dL (12.2-16.2)
--- NOTE | 2024-06-11 12:04 | DVHSR ---
APPROVED REPORT EXAM: Two-dimensional and M-mode echocardiogram with Doppler and color Doppler. Blood Pressure: 140/71 mmHg INDICATION Heart Valve RISK FACTORS Height: 5' 7", Weight: 160 DIMENSIONS LVDd4.4 (3.8-5.7cm)LA (2D)3.4 (1.9-4.0cm)Aortic Root3.4 (2.0-3.7cm) LVDs3.1 (2.5-4.0cm)LA (MM) (1.9-4.0cm)Aortic Cusp Exc1.8 (1.5-2.0cm) EF (%) 55.0 (55-70%)Rt. Atrium3.7 (1.9-4.0cm)Asc. Aorta cm IVSd1.2 (0.7-1.1cm)RV (D) (1.8-2.4cm) PWd1.2 (0.7-1.1cm) Mitral Valve MitralMitral Stenosis E wave0.70m/sMV Mean GR.mmHg A wave0.90m/sMV Peak GR.mmHg E/A ratio0.82D MVAcm2 Aortic Valve Aortic ValveAortic Stenosis V10.90m/Shanique Mean GR.9mmHg V22.00m/Shanique Peak GR.16mmHg LVOT Diameter2.0 (1.8-2.4cm)Doppler AVA1.41cm2 Pulmonic Valve V21.20m/s Conclusion MILD LVH AND MILD LV DIASTOLIC DYSFUNCTION NORMAL LV EJECTION FRACTION OF 65% NORMAL RV FUNCTION AND SIZE NO EFFUSION
[2024-06-11] MEDS: GOLYTELY 4L KIT PO ONE (15:20)
--- NOTE | 2024-06-11 16:05 | DVHPN2 ---
Subjective Assuming the care of the patient from today onwards. Patient denies any lower GI bleed. Changes from previous H/P or p: No Changes Eyes: No Pain, No Vision change, No Conjunctivae inflammation, No Eyelid inflammation, No Other, No Redness ENT: No Ear pain, No Ear discharge, No Nose pain, No Nose discharge, No Nose congestion, No Mouth pain, No Mouth swelling, No Throat pain, No Throat swelling, No Other Cardiovascular: No Chest Pain, No Palpitations, No Orthopnea, No Paroxysmal Noc. Dyspnea, No Edema, No Lt Headedness, No Other Respiratory: No Cough, No Dry, No Shortness of breath, No SOB with excertion, No Wheezing, No Hemoptysis, No Pleuritic Pain, No Sputum, No Other Gastrointestinal: No Nausea, No Vomiting; Abdominal Pain; No Diarrhea, No Constipation, No Melena; Hematochezia; No Other Genitourinary: No Dysuria, No Frequency, No Incontinence, No Hematuria, No Retention, No Other Musculoskeletal: No other, No neck pain, No shoulder pain, No arm pain, No back pain, No hand pain, No leg pain, No foot pain Skin: No Rash, No Lesions, No Jaundice, No Bruising, No Other Objective Vitals Vital Signs Date Time Temp Pulse Resp B/P (MAP) Pulse Ox O2 Delivery O2 Flow Rate FiO2 06/11/24 13:00 98.4 75 20 121/54 (76) 97 98.4 06/11/24 08:00 Room Air* 0 21 Intake/Output Intake and Output 06/11/24 07:00 # Voids 1 # Bowel Movements 3 Exam HEENT pupils are reactive Neck is supple CV is S1-S2 regular rate and rhythm Respiratory are clear GI positive bowel sound, soft nondistended nontender no guarding no rigidity Extremity no edema [employer] no motor deficit Medications Current Medications Medications Dose Ordered Sig/Roxanna Route Start Time Stop Time Status Last Admin Dose Admin Acetaminophen/ Hydrocodone Bitart 1 tab Q4HP PRN PO 06/10/24 09:00 UNV Acetaminophen 650 mg Q6HP PRN PO 06/10/24 09:00 UNV Nitroglycerin 0.4 mg Q5MINP PRN SL 06/10/24 09:00 UNV Morphine Sulfate 2 mg Q30M PRN IV 06/10/24 09:00 UNV Pantoprazole Sodium 40 mg DAILY IV 06/10/24 10:00 UNV Sodium Chloride 1,000 ml @ 100 mls/hr Q10H IV 06/10/24 09:00 UNV Piperacillin Sod/ Tazobactam Sod 100 ml @ 25 mls/hr Q6HR IV 06/10/24 12:00 UNV Morphine Sulfate 4 mg Q4HPRN PRN IV 06/10/24 09:00 UNV Ondansetron HCl 4 mg Q4HPRN PRN IV 06/10/24 09:00 UNV Sodium Chloride 1,000 ml @ 75 mls/hr [id number] IV 06/10/24 09:45 06/11/24 12:33 75 MLS/HR Piperacillin Sod/ Tazobactam Sod 100 ml @ 25 mls/hr Q8HR IV 06/10/24 14:00 06/11/24 15:51 25 MLS/HR Acetaminophen/ Hydrocodone Bitart 1 tab Q4HP PRN PO 06/10/24 09:45 06/11/24 11:29 1 TAB Ondansetron HCl 4 mg Q4HP PRN IV 06/10/24 09:45 06/10/24 12:04 4 MG Acetaminophen 650 mg Q6HP PRN PO 06/10/24 09:45 Morphine Sulfate 2 mg Q4HPRN PRN IV 06/10/24 09:45 06/10/24 12:04 2 MG Pantoprazole Sodium 50 ml @ 10 mls/hr Q5H IV 06/10/24 10:30 06/11/24 11:48 10 MLS/HR Diagnostic Test (Pha) 1 strip Q6HR 06/10/24 12:00 06/11/24 11:36 1 STRIP Insulin Human Regular Q6HR SC 06/10/24 12:00 Dextrose 50 ml UD PRN IV 06/10/24 10:45 Iron Sucrose 110 ml @ 110 mls/hr DAILY@1200 IV 06/11/24 12:00 06/15/24 12:59 06/11/24 11:31 110 MLS/HR Laboratory Results Laboratory Tests 06/11/24 06:30 06/11/24 11:00 Chemistry Test 06/11/24 06:30 Albumin 3.2 g/dL (3.2-4.8) Calcium Level 8.6 mg/dL (8.7-10.4) L Total Protein 5.2 g/dL (5.7-8.2) L Coagulation Test 06/11/24 06:30 Prothrombin Time 11.2 sec (9.3-11.8) Prothrombin Time INR 1.06 (0.9-1.15) LFT Test 06/11/24 06:30 Alanine Aminotransferase (ALT) 9 U/L (7-40) Alkaline Phosphatase 68 U/L (46-116) Aspartate Amino Transferase (AST) 11 U/L (13-40) L Total Bilirubin 0.3 mg/dL (0.2-1.0) Urinalysis Test 06/09/24 21:47 Urine Color Light-yellow (Yellow) Urine Clarity Clear (Clear) Urine pH 6.0 (5.0-9.0) Urine Specific [place] > 1.050 (1.001-1.035) Urine Protein Trace (Negative) H Urine Ketones Negative (Negative) Urine Blood Negative /uL (Negative) Urine Nitrite Negative (Negative) Urine Bilirubin Negative (Negative) Urine Urobilinogen Normal mg/dL (Negative) Urine Leukocyte Esterase Negative /uL (Negative) Urine RBC 1 /hpf (0 - 4) Urine WBC 1 /hpf (0 - 5) Urine Squamous Epithelial Cells Few /hpf (<5) Urine Bacteria None seen /hpf (None Seen) Urine Glucose Normal mg/dL (Normal) Assessment/Plan Assessment/Plan 54-year-old female with a known history of ovarian cancer, diabetes mellitus type 2 hypertension, hypothyroidism who initially presented to the hospital with the abdominal pain rectal bleeding found to have 1. Lower GI bleed 2. Abdominal pain currently resolved 3. CT evidence of active GI hemorrhage, GI evaluated the patient no active evidence of GI bleed with the spine 4. Hypothyroidism 5. Hypertension 6. Polysubstance abuse including alcohol marijuana and amphetamine 7. History of ovarian cancer -clear liquid diet as tolerated. -continue Protonix, GI has scheduled the patient for possible colonoscopy soon. Plan discussed with: Patient Date of Service: Jun 11, 2024 Billing Provider: SHANA ROWLAND MD Common Visit Codes: NOT BILLABLE SHANA ROWLAND MD Jun 11, 2024 16:05
[2024-06-11] MEDS: ACETAMINOPHEN 325 MG TAB PO PRN (20:14)
[2024-06-11 22:15] LABS: Hematocrit 26.8 % (36.0-46.0); Hemoglobin 8.8 g/dL (12.2-16.2)
--- NOTE | 2024-06-11 23:26 | DVHPN2 ---
Progress Note - Dictate Date Seen: Jun 11, 2024 Medical Necessity Reason Pt with a Central, PICC or Fol: No Subjective Patient seen at bedside, resting comfortably Patient is feeling better She has had no further episodes of rectal bleeding and has not had a bowel movement for 24 hours Patient is tolerating a clear liquid diet and wants to eat vital signs Vital Sign Date Time Temp Pulse Resp B/P (MAP) Pulse Ox O2 Delivery O2 Flow Rate FiO2 06/11/24 21:00 98.2 74 18 127/58 (81) 94 98.2 06/11/24 08:00 Room Air* 0 21 medications Current Medications Medications Dose Ordered Sig/Roxanna Route Start Time Stop Time Status Last Admin Dose Admin Acetaminophen/ Hydrocodone Bitart 1 tab Q4HP PRN PO 06/10/24 09:00 UNV Acetaminophen 650 mg Q6HP PRN PO 06/10/24 09:00 UNV Nitroglycerin 0.4 mg Q5MINP PRN SL 06/10/24 09:00 UNV Morphine Sulfate 2 mg Q30M PRN IV 06/10/24 09:00 UNV Pantoprazole Sodium 40 mg DAILY IV 06/10/24 10:00 UNV Sodium Chloride 1,000 ml @ 100 mls/hr Q10H IV 06/10/24 09:00 UNV Piperacillin Sod/ Tazobactam Sod 100 ml @ 25 mls/hr Q6HR IV 06/10/24 12:00 UNV Morphine Sulfate 4 mg Q4HPRN PRN IV 06/10/24 09:00 UNV Ondansetron HCl 4 mg Q4HPRN PRN IV 06/10/24 09:00 UNV Sodium Chloride 1,000 ml @ 75 mls/hr [id number] IV 06/10/24 09:45 06/11/24 12:33 75 MLS/HR Piperacillin Sod/ Tazobactam Sod 100 ml @ 25 mls/hr Q8HR IV 06/10/24 14:00 06/11/24 22:24 25 MLS/HR Acetaminophen/ Hydrocodone Bitart 1 tab Q4HP PRN PO 06/10/24 09:45 06/11/24 17:21 1 TAB Ondansetron HCl 4 mg Q4HP PRN IV 06/10/24 09:45 06/10/24 12:04 4 MG Acetaminophen 650 mg Q6HP PRN PO 06/10/24 09:45 06/11/24 20:14 650 MG Morphine Sulfate 2 mg Q4HPRN PRN IV 06/10/24 09:45 06/10/24 12:04 2 MG Pantoprazole Sodium 50 ml @ 10 mls/hr Q5H IV 06/10/24 10:30 06/11/24 22:22 10 MLS/HR Diagnostic Test (Pha) 1 strip Q6HR 06/10/24 12:00 06/11/24 17:27 1 STRIP Insulin Human Regular Q6HR SC 06/10/24 12:00 Dextrose 50 ml UD PRN IV 06/10/24 10:45 Iron Sucrose 110 ml @ 110 mls/hr DAILY@1200 IV 06/11/24 12:00 06/15/24 12:59 06/11/24 11:31 110 MLS/HR objective General Appearance: Alert, Oriented X3, Cooperative, No acute distress; mild pallor, slightly lethargic HEENT: Atraumatic, PERRLA, EOMI, Mucous membr. moist/pink Respiratory: Clear to auscultation, Normal air movement Cardiovascular: Regular rate, Normal S1, Normal S2, No murmurs Abdominal: Soft Extremities: No clubbing, No cyanosis, No edema, Normal pulses, No tenderness/swelling Skin: No rashes, No breakdown, No significant lesion Neuro: Normal gait, Normal speech, Strength at 5/5 X4 ext, Normal tone, Sensation intact Psych/Mental Status: Mental status NL, Mood NL laboratory and microbiology Laboratory Tests 06/11/24 22:00 06/11/24 06:30 Test 06/11/24 06:30 Range/Units Serum Glucose 71 L 74-106 mg/dL Problems(with codes): (1) Polysubstance (excluding opioids) dependence (2) Enteritis (3) Colitis (4) Anemia (5) GI bleed Prognosis Plan Continue clear liquid diet today Patient will be given a bowel prep She is agreeable to proceed with a colonoscopy tomorrow Risks and alternatives were discussed Repeat H&H every 12 hours I will follow up patient with you Plan discussed with: Patient, Other (Nurse) NIRALI PRO MD Jun 11, 2024 23:26
[2024-06-12] VITALS (9 sets, daily range): BP systolic 116–159; BP diastolic 50–66; PULSE 72–93; RESP 13–20; TEMP 97.8–98.5; O2SAT 93–100
[2024-06-12] MEDS: MAGNESIUM CITRATE SOLUTION 300 ML BTL PO ONE (08:05)
[2024-06-12] MEDS: GOLYTELY 4L KIT PO ONE (08:19)
[2024-06-12 11:15] LABS: Hematocrit 31.2 % (36.0-46.0); Hemoglobin 10.4 g/dL (12.2-16.2)
[2024-06-12] MEDS ORDERED: MIDAZOLAM HCL 2MG/2ML 2ml VIAL (1mg/ml) ONE (13:33)
[2024-06-12] MEDS ORDERED: fentaNYL CITRATE 100 MCG/2 ML VL ONE (13:33)
[2024-06-12] MEDS ORDERED: DexAMETHasone SOD PHOS 10MG/1ML VIAL INJ ONE (13:47)
[2024-06-12] MEDS ORDERED: PROPOFOL 10 MG/ML 20 ML IV ONE (13:47)
--- NOTE | 2024-06-12 14:12 | DVHOP2 ---
Operative Report DATE OF OPERATION: 06/12/24 PROCEDURE: Colonoscopy with cold biopsy. PREOPERATIVE INDICATION: The patient is a 54 -year-old female undergoing colonoscopy for evaluation of lower GI bleed and abnormal finding GI tract imaging POSTOPERATIVE DIAGNOSES: 1. Moderate scattered diverticular disease most prominent in the sigmoid with sigmoid muscular hypertrophy 2. There was a 2 mm benign-appearing distal transverse colon polyp that was seen and removed completely via cold biopsy forceps 3. There was evidence of some old blood and liquid stool in the colon more on the left side however there was no source of active bleeding or any AVMs or masses noted 4. Trace to 1+ internal hemorrhoids otherwise grossly normal examination up to the cecum and terminal ileum PROCEDURE PERFORMED BY: Nirali Cain M.D. SCOPE: Olympus videocolonoscope. ASA CLASS: 3. PREOPERATIVE MEDICATIONS: Dr. Cheng Montano PROCEDURE IN DETAIL: After obtaining an informed consent, the patient was placed on left lateral decubitus position. She was then sedated with the above medications. A rectal examination was performed that was normal. The colonoscope was then passed through the anus into the rectosigmoid and through the descending, transverse, and ascending colon up to the cecum with visualization of the appendiceal orifice, base of the cecum and the ileocecal valve. The colonoscope was then withdrawn. There was no evidence of active GI bleeding There was residual old liquid stool and some old blood in the colon however after irrigation aspiration no gross bleeding was seen Patient had scattered diverticular disease most prominent in the sigmoid with sigmoid muscular hypertrophy. There was a 2 mm benign-appearing distal transverse colon polyp that was seen and removed completely via cold biopsy forceps On retroflexion and straight on view she had trace to 1+ internal hemorrhoids The patient tolerated the procedure well without difficulty. WITHDRAWAL TIME: 16 minutes QUALITY OF THE PREP: [place] Bowel Prep score: 6. COMPLICATIONS : None SPECIMENS: Transverse colon polyp DISPOSITION: Transfer back to the floor Stable PLAN: 1. Repeat colonoscopy in near future with a better bowel prep for complete evaluation although there was no evidence of active GI bleeding and no masses or colitis or concerning lesion seen 2. Resume full liquid diet advance as tolerated 3. Hold aspirin NSAIDs smoking and alcohol 4. Outpatient follow up with me in 4-6 weeks to review results and discuss further management 5. We are monitoring her labs and giving her IV iron 6. I will follow up patient with you, I suspect the likely source of the GI bleed was a diverticular bleed that has now resolved NIRALI CAIN MD Jun 12, 2024 14:12
[2024-06-12] MEDS ORDERED: HYDROmorphone HCL 2 MG/ML VL/or syr IV PRN (14:30)
[2024-06-12] MEDS ORDERED: MORPHINE SULFATE 4 MG/ML SYR/VIAL IV PRN (14:30)
[2024-06-12] MEDS ORDERED: MIDAZOLAM HCL 2MG/2ML 2ml VIAL (1mg/ml) IV PRN (14:30)
[2024-06-12] MEDS: ONDANSETRON HCL 4 MG/2 ML VIAL IV ONE (14:30)
[2024-06-12] MEDS ORDERED: ePHEDrine SULFATE 50 MG/ML AMP IV PRN (14:30)
--- NOTE | 2024-06-12 16:34 | DVHPN2 ---
Subjective Patient was currently in a GI lab for colonoscopy. Changes from previous H/P or p: No Changes Eyes: No Pain, No Vision change, No Conjunctivae inflammation, No Eyelid inflammation, No Other, No Redness ENT: No Ear pain, No Ear discharge, No Nose pain, No Nose discharge, No Nose congestion, No Mouth pain, No Mouth swelling, No Throat pain, No Throat swelling, No Other Cardiovascular: No Chest Pain, No Palpitations, No Orthopnea, No Paroxysmal Noc. Dyspnea, No Edema, No Lt Headedness, No Other Respiratory: No Cough, No Dry, No Shortness of breath, No SOB with excertion, No Wheezing, No Hemoptysis, No Pleuritic Pain, No Sputum, No Other Gastrointestinal: No Nausea, No Vomiting; Abdominal Pain; No Diarrhea, No Constipation, No Melena; Hematochezia; No Other Genitourinary: No Dysuria, No Frequency, No Incontinence, No Hematuria, No Retention, No Other Musculoskeletal: No other, No neck pain, No shoulder pain, No arm pain, No back pain, No hand pain, No leg pain, No foot pain Skin: No Rash, No Lesions, No Jaundice, No Bruising, No Other Objective Vitals Vital Signs Date Time Temp Pulse Resp B/P (MAP) Pulse Ox O2 Delivery O2 Flow Rate FiO2 06/12/24 13:00 97.8 84 18 143/61 (88) 98 97.8 06/12/24 08:00 Room Air* 0 21 Intake/Output Intake and Output 06/12/24 07:00 Intake Total 1170 ml Output Total 700 ml Balance 470 ml Intake Oral 870 ml IV Total 300 ml Output Urine Total 700 ml # Voids 2 # Bowel Movements 1 Medications Current Medications Medications Dose Ordered Sig/[place]ox[place] Route Start Time Stop Time Status Last Admin Dose Admin Acetaminophen/ Hydrocodone Bitart 1 tab Q4HP PRN PO 06/10/24 09:00 UNV Acetaminophen 650 mg Q6HP PRN PO 06/10/24 09:00 UNV Nitroglycerin 0.4 mg Q5MINP PRN SL 06/10/24 09:00 UNV Morphine Sulfate 2 mg Q30M PRN IV 06/10/24 09:00 UNV Pantoprazole Sodium 40 mg DAILY IV 06/10/24 10:00 UNV Sodium Chloride 1,000 ml @ 100 mls/hr Q10H IV 06/10/24 09:00 UNV Piperacillin Sod/ Tazobactam Sod 100 ml @ 25 mls/hr Q6HR IV 06/10/24 12:00 UNV Morphine Sulfate 4 mg Q4HPRN PRN IV 06/10/24 09:00 UNV Ondansetron HCl 4 mg Q4HPRN PRN IV 06/10/24 09:00 UNV Sodium Chloride 1,000 ml @ 75 mls/hr [id number] IV 06/10/24 09:45 06/12/24 00:45 75 MLS/HR Piperacillin Sod/ Tazobactam Sod 100 ml @ 25 mls/hr Q8HR IV 06/10/24 14:00 06/12/24 05:41 25 MLS/HR Acetaminophen/ Hydrocodone Bitart 1 tab Q4HP PRN PO 06/10/24 09:45 06/12/24 05:36 1 TAB Ondansetron HCl 4 mg Q4HP PRN IV 06/10/24 09:45 06/12/24 11:46 4 MG Acetaminophen 650 mg Q6HP PRN PO 06/10/24 09:45 06/11/24 20:14 650 MG Morphine Sulfate 2 mg Q4HPRN PRN IV 06/10/24 09:45 06/10/24 12:04 2 MG Pantoprazole Sodium 50 ml @ 10 mls/hr Q5H IV 06/10/24 10:30 06/12/24 08:11 10 MLS/HR Diagnostic Test (Pha) 1 strip Q6HR 06/10/24 12:00 06/12/24 11:58 1 STRIP Insulin Human Regular Q6HR SC 06/10/24 12:00 Dextrose 50 ml UD PRN IV 06/10/24 10:45 Iron Sucrose 110 ml @ 110 mls/hr DAILY@1200 IV 06/11/24 12:00 06/15/24 12:59 06/12/24 11:45 110 MLS/HR Laboratory Results Laboratory Tests 06/11/24 06:30 06/12/24 10:33 Urinalysis Test 06/09/24 21:47 Urine Color Light-yellow (Yellow) Urine Clarity Clear (Clear) Urine pH 6.0 (5.0-9.0) Urine Specific [place] > 1.050 (1.001-1.035) Urine Protein Trace (Negative) H Urine Ketones Negative (Negative) Urine Blood Negative /uL (Negative) Urine Nitrite Negative (Negative) Urine Bilirubin Negative (Negative) Urine Urobilinogen Normal mg/dL (Negative) Urine Leukocyte Esterase Negative /uL (Negative) Urine RBC 1 /hpf (0 - 4) Urine WBC 1 /hpf (0 - 5) Urine Squamous Epithelial Cells Few /hpf (<5) Urine Bacteria None seen /hpf (None Seen) Urine Glucose Normal mg/dL (Normal) Assessment/Plan Assessment/Plan 54-year-old female with a known history of ovarian cancer, diabetes mellitus type 2 hypertension, hypothyroidism who initially presented to the hospital with the abdominal pain rectal bleeding found to have 1. Lower GI bleed 2. Abdominal pain currently resolved 3. CT evidence of active GI hemorrhage, GI evaluated the patient no active evidence of GI bleed with the spine 4. Hypothyroidism 5. Hypertension 6. Polysubstance abuse including alcohol marijuana and amphetamine 7. History of ovarian cancer -clear liquid diet as tolerated. -continue Protonix patient was currently in GI lab for colonoscopy Plan discussed with: Other Date of Service: Jun 12, 2024 Billing Provider: SHANA ROWLAND MD Common Visit Codes: NOT BILLABLE SHANA ROWLAND MD Jun 12, 2024 16:34
--- NOTE | 2024-06-12 21:24 | DVHINCON2 ---
DATE OF CONSULTATION: 06/12/2024 REFERRING PHYSICIAN: Dr. Covarrubias. CONSULTING PHYSICIAN: Dr. Saenz. INDICATION: History of heart valve replacement. HISTORY OF PRESENT ILLNESS: The patient is a 54-year-old female with history of hypertension, diabetes, questionable history of heart valve replacement; presented to the hospital with complaints of blood in her stool. She was noted to be anemic, currently receiving blood transfusion. GI workup in progress. The patient stated about 27 years ago, she had heart valve replaced, unclear at this point the details of it. She is denying any chest pain or shortness of breath at this point. PAST MEDICAL HISTORY: * Hypertension. * Questionable history of heart valve replacement. * Diabetes. * Ovarian cancer. MEDICATIONS: Per med rec. ALLERGIES: No known drug allergies. PHYSICAL EXAMINATION: GENERAL: Alert and awake, in no form of cardiopulmonary distress. VITAL SIGNS: Blood pressure 150/60, pulse 72 per minute, saturation 99%. HEENT: No carotid bruits. No jugular venous distention. CHEST: Bilateral air entry. CARDIOVASCULAR: Precordial and carotid pulses palpable. Normal S1, S2. Regular rate and rhythm. No appreciable gallop or rubs. EXTREMITIES: No peripheral edema. DIAGNOSTIC DATA: White count 7, hemoglobin 8.8, platelets . Sodium 139, potassium 4.2, creatinine 0.8. ASSESSMENT: * Gastrointestinal bleed. * Anemia. * History of hypertension. * Questionable history of heart valve replacement. RECOMMENDATIONS: * Monitor H and H closely. * The patient is awaiting colonoscopy. * We will review echo to assess for presence of prosthetic heart valve. * Monitor electrolytes. * Continue tele monitor for now. Thank you for allowing me to participate in the care of this patient. MD CONNOR Damon/SELENE/JESIKA/CYNTHIA TID: [id number] RECEIPT: [id number]
[2024-06-12 22:25] LABS: Hematocrit 30.3 % (36.0-46.0); Hemoglobin 10.1 g/dL (12.2-16.2)
[2024-06-13 01:00] VITALS: BP 142/56; PULSE 80; RESP 18; TEMP 98.6; O2SAT 99
[2024-06-13 05:00] VITALS: BP 140/50; PULSE 76; RESP 18; TEMP 98.6; O2SAT 97
[2024-06-13 08:00] VITALS: PULSE 78; PULSE 79; RESP 20; O2SAT 95
[2024-06-13 08:37] VITALS: BP 116/55; PULSE 78; RESP 20; TEMP 98.1; O2SAT 95
[2024-06-13 10:47] LABS: Hematocrit 27.7 % (36.0-46.0); Hemoglobin 9.2 g/dL (12.2-16.2)
[2024-06-13 12:47] VITALS: BP 114/59; PULSE 85; RESP 20; TEMP 98.3; O2SAT 99
--- NOTE | 2024-06-13 15:21 | DVHPN2 ---
Progress Note - Dictate Date Seen: Jun 13, 2024 Medical Necessity Reason Pt with a Central, PICC or Fol: No Subjective Patient seen at bedside, resting comfortably She was ambulating earlier She has no further GI bleeding and patient is requesting a discharge home H&H is stable, patient is tolerating a diet vital signs Vital Sign Date Time Temp Pulse Resp B/P (MAP) Pulse Ox O2 Delivery O2 Flow Rate FiO2 06/13/24 12:47 98.3 85 20 114/59 (77) 99 98.3 06/13/24 08:00 Room Air* 0 21 Total Intake and Output 06/12/24 06/12/24 06/13/24 15:00 23:00 07:00 Intake Total 100 ml 610 ml 775 ml Balance 100 ml 610 ml 775 ml medications Current Medications Medications Dose Ordered Sig/Roxanna Route Start Time Stop Time Status Last Admin Dose Admin Acetaminophen/ Hydrocodone Bitart 1 tab Q4HP PRN PO 06/10/24 09:00 UNV Acetaminophen 650 mg Q6HP PRN PO 06/10/24 09:00 UNV Nitroglycerin 0.4 mg Q5MINP PRN SL 06/10/24 09:00 UNV Morphine Sulfate 2 mg Q30M PRN IV 06/10/24 09:00 UNV Pantoprazole Sodium 40 mg DAILY IV 06/10/24 10:00 UNV Sodium Chloride 1,000 ml @ 100 mls/hr Q10H IV 06/10/24 09:00 UNV Piperacillin Sod/ Tazobactam Sod 100 ml @ 25 mls/hr Q6HR IV 06/10/24 12:00 UNV Morphine Sulfate 4 mg Q4HPRN PRN IV 06/10/24 09:00 UNV Ondansetron HCl 4 mg Q4HPRN PRN IV 06/10/24 09:00 UNV Sodium Chloride 1,000 ml @ 75 mls/hr Q16L42H IV 06/10/24 09:45 06/13/24 04:25 75 MLS/HR Piperacillin Sod/ Tazobactam Sod 100 ml @ 25 mls/hr Q8HR IV 06/10/24 14:00 06/13/24 14:00 25 MLS/HR Acetaminophen/ Hydrocodone Bitart 1 tab Q4HP PRN PO 06/10/24 09:45 06/13/24 15:14 1 TAB Ondansetron HCl 4 mg Q4HP PRN IV 06/10/24 09:45 06/12/24 11:46 4 MG Acetaminophen 650 mg Q6HP PRN PO 06/10/24 09:45 06/13/24 13:05 650 MG Morphine Sulfate 2 mg Q4HPRN PRN IV 06/10/24 09:45 06/10/24 12:04 2 MG Pantoprazole Sodium 50 ml @ 10 mls/hr Q5H IV 06/10/24 10:30 06/13/24 13:30 10 MLS/HR Diagnostic Test (Pha) 1 strip Q6HR 06/10/24 12:00 06/13/24 12:41 1 STRIP Insulin Human Regular Q6HR SC 06/10/24 12:00 06/13/24 12:41 2 UNITS Dextrose 50 ml UD PRN IV 06/10/24 10:45 Iron Sucrose 110 ml @ 110 mls/hr DAILY@1200 IV 06/11/24 12:00 06/15/24 12:59 06/13/24 12:00 110 MLS/HR objective General Appearance: Alert, Oriented X3, Cooperative, No acute distress; mild pallor, slightly lethargic HEENT: Atraumatic, PERRLA, EOMI, Mucous membr. moist/pink Respiratory: Clear to auscultation, Normal air movement Cardiovascular: Regular rate, Normal S1, Normal S2, No murmurs Abdominal: Soft Extremities: No clubbing, No cyanosis, No edema, Normal pulses, No tenderness/swelling Skin: No rashes, No breakdown, No significant lesion Neuro: Normal gait, Normal speech, Strength at 5/5 X4 ext, Normal tone, Sensation intact Psych/Mental Status: Mental status NL, Mood NL laboratory and microbiology Laboratory Tests 06/13/24 10:27 06/11/24 06:30 Test 06/11/24 06:30 Range/Units Serum Glucose 71 L 74-106 mg/dL Problems(with codes): (1) Diverticulosis (2) Polysubstance (excluding opioids) dependence (3) Anemia (4) GI bleed (5) Enteritis Prognosis Plan DC H&H q.12 hours Mechanical soft diet Protonix 40 mg p.o. daily Outpatient follow up with GI Services in 2-4 weeks or as needed Discharge planning as per hospitalist Plan discussed with: Patient, Daughter NIRALI PRO MD Jun 13, 2024 15:21
[2024-06-13 16:40] VITALS: BP 96/30; PULSE 84; RESP 20; TEMP 98.5; O2SAT 98
[2024-06-13] MEDS ORDERED: AUG875T PO (17:45)
[2024-06-13] MEDS ORDERED: HYDR-4902 PO (17:45)
[2024-06-13] MEDS ORDERED: PANT40TA2 PO (17:45)
--- NOTE | 2024-06-13 17:51 | DVHDS2 ---
Discharge Summary Date of Admission Jun 10, 2024 at 08:47 Date of Discharge: Jun 13, 2024 Labs/Diagnostic Data: Laboratory Results Test 06/13/24 12:00 06/13/24 10:27 06/11/24 06:30 06/10/24 10:26 POC Glucose 140 mg/dl (70-106) Hemoglobin 9.2 g/dL (12.2-16.2) Hematocrit 27.7 % (36.0-46.0) White Blood Count 7.8 10^3/uL (4.4-10.8) Red Blood Count 2.91 10^6/uL (4.0-5.20) Mean Corpuscular Volume 91.8 fL (80.0-100.0) Mean Corpuscular Hemoglobin 29.7 pg (28.0-32.0) Mean Corpuscular Hemoglobin Concent 32.4 g/dL (32.0-36.0) Red Cell Distribution Width 12.8 % (11.8-14.3) Platelet Count 204 10^3/uL (140-450) Mean Platelet Volume 8.3 fL (6.9-10.8) Neutrophils (%) (Auto) 52.4 % (37.0-80.0) Lymphocytes (%) (Auto) 38.8 % (10.0-50.0) Monocytes (%) (Auto) 4.3 % (0.0-12.0) Eosinophils (%) (Auto) 3.5 % (0.0-7.0) Basophils (%) (Auto) 1.0 % (0.0-2.0) Neutrophils # (Auto) 4.1 10 ^3/uL (1.6-8.6) Lymphocytes # (Auto) 3.0 10 ^3/uL (0.4-5.4) Monocytes # (Auto) 0.3 10 ^3/uL (0-1.3) Eosinophils # (Auto) 0.3 10 ^3/uL (0-0.8) Basophils # (Auto) 0.1 10 ^3/uL (0-0.2) Nucleated Red Blood Cells 0.1 % Prothrombin Time 11.2 sec (9.3-11.8) Prothrombin Time INR 1.06 (0.9-1.15) Sodium Level 139 mmol/L (136-145) Potassium Level 4.2 mmol/L (3.5-5.1) Chloride Level 109 mmol/L (98-107) Carbon Dioxide Level 21 mmol/L (20-31) Anion Gap 9 (5-15) Blood Urea Nitrogen 17 mg/dL (9-23) Creatinine 0.80 mg/dL (0.550-1.02) Glomerular Filtration Rate Calc 86 mL/min (>90) BUN/Creatinine Ratio 21.3 (10.0-20.0) Serum Glucose 71 mg/dL (74-106) Calcium Level 8.6 mg/dL (8.7-10.4) Total Bilirubin 0.3 mg/dL (0.2-1.0) Aspartate Amino Transferase (AST) 11 U/L (13-40) Alanine Aminotransferase (ALT) 9 U/L (7-40) Alkaline Phosphatase 68 U/L (46-116) Total Protein 5.2 g/dL (5.7-8.2) Albumin 3.2 g/dL (3.2-4.8) Hemoglobin A1c 5.8 % A1C (<5.7) Test 06/10/24 05:40 06/09/24 21:47 06/09/24 16:10 Carcinoembryonic Antigen 4.44 ng/mL (<=5.0) Thyroid Stimulating Hormone (TSH) 2.27 uIU/mL (0.55-4.78) Urine Color Light-yellow (Yellow) Urine Clarity Clear (Clear) Urine pH 6.0 (5.0-9.0) Urine Specific [place] > 1.050 (1.001-1.035) Urine Protein Trace (Negative) Urine Ketones Negative (Negative) Urine Blood Negative /uL (Negative) Urine Nitrite Negative (Negative) Urine Bilirubin Negative (Negative) Urine Urobilinogen Normal mg/dL (Negative) Urine Leukocyte Esterase Negative /uL (Negative) Urine RBC 1 /hpf (0 - 4) Urine WBC 1 /hpf (0 - 5) Urine Squamous Epithelial Cells Few /hpf (<5) Urine Bacteria None seen /hpf (None Seen) Urine Glucose Normal mg/dL (Normal) Lipase 48 U/L (12-53) Other Laboratory Tests 06/13/24 10:27 06/11/24 06:30 Brief Hx & Hospital Course: 54-year-old female with a known history of ovarian cancer, diabetes mellitus type 2 hypertension, hypothyroidism who initially presented to the hospital with the abdominal pain rectal bleeding found to have diverticular bleed. Patient has been to be admitted started on Protonix drip. GI was consulted who recommended a colonoscopy. Patient underwent colonoscopy which showed order blood in the colon no active evidence of bleeding. Patient will be discharged on p.o. antibiotics and been pills as well as Protonix. Patient was already cleared by GI to be discharged. But he was follow up with the GI and PCP in 1-2 weeks. Condition at Discharge: Stable Final Diagnosis/Problems List 1. Lower GI bleed post colonoscopy shows no active evidence of bleeding 2. Abdominal pain currently resolved 3. CT evidence of active GI hemorrhage, GI evaluated the patient no active evidence of GI bleed with the spine 4. Hypothyroidism 5. Hypertension 6. Polysubstance abuse including alcohol marijuana and amphetamine 7. Chronic migraine Discharge Disposition: Home SNF Discharge Will this Physician continue t: No Discharge Instruct/Medications Diet: Cardiac 2g Na,low cholest Activity: See Comment Activity comment: No driving, no signing of legal documents, no bleeding on a heavy machinery while on narcotics Follow Up/Referral: Follow up with the PCP in 1-2 weeks follow up with the GI in one week Medications: Protonix, Augmentin, [place] as prescribed Discharge Statement: "Patient was advised to return to the ER or call 911 if any headaches, dizziness, shortness of breath, chest pain, abdominal pain, bleeding, fevers, or worsening of medical condition. Patient was counseled about treatment plan, medications, possible side effects, patientverbalized understanding. All questions were answered to the best of my ability. This discharge took greater then 30 minutes in planning, reviewing documentation, counseling the patient, and discussing with other team members." ASSESSMENT ASSESSMENT Assessment 54-year-old female with a known history of ovarian cancer, diabetes mellitus type 2 hypertension, hypothyroidism who initially presented to the hospital with the abdominal pain rectal bleeding found to have 1. Lower GI bleed 2. Abdominal pain currently resolved 3. CT evidence of active GI hemorrhage, GI evaluated the patient no active evidence of GI bleed with the spine 4. Hypothyroidism 5. Hypertension 6. Polysubstance abuse including alcohol marijuana and amphetamine 7. Chronic migraine Date of Service: Jun 13, 2024 Billing Provider: SHANA ROWLAND MD Common Visit Codes: NOT BILLABLE SHANA ROWLAND MD Jun 13, 2024 17:51
== END 2024-06-13 18:15 | disposition home or self-care (01) | DRG 253 ==
LOC: ER 15:43 → EDBD 15:43 → TELE 06-10 08:47 → TELE-WESTW 06-10 17:03
PROVIDERS: ADMIT Nurse Practitioner Family; ATTEND Internal Medicine
PROC: 0DBL8ZX Excision of Transverse Colon, Via Natural or Artificial Opening Endoscopic, Diagnostic (ICD-10-PCS; principal; 2024-06-12 13:34)
DX: K92.2 Gastrointestinal hemorrhage, unspecified (principal); D64.9 Anemia, unspecified; E11.9 Type 2 diabetes mellitus without complications; E03.9 Hypothyroidism, unspecified; F12.10 Cannabis abuse, uncomplicated; K52.9 Noninfective gastroenteritis and colitis, unspecified; K57.31 Diverticulosis of large intestine without perforation or abscess with bleeding; F15.10 Other stimulant abuse, uncomplicated; G43.909 Migraine, unspecified, not intractable, without status migrainosus; K63.5 Polyp of colon; K64.8 Other hemorrhoids; I10 Essential (primary) hypertension; Z82.3 Family history of stroke; Z83.3 Family history of diabetes mellitus; Z85.43 Personal history of malignant neoplasm of ovary; Z95.2 Presence of prosthetic heart valve; Z90.710 Acquired absence of both cervix and uterus
CPT/HCPCS: 36415; 74177; 80053; 81001; 82378; 82962; 83036; 83690; 84443; 85014; 85018; 85025; 85610; 86850; 86900; 86901; 93306; G0378; J1100; J1756; J1815; J2250; J2405; J2543; J2704